=== PATIENT | male | born 1960 | race Caucasian/White ===

== ENCOUNTER 2021-01-09 15:10 | Emergency (ER) | payer OTHER ==
[2021-01-09 16:02] LABS: BILIRUBIN NEGATIVE (NEGATIVE); BLOOD NEGATIVE Ery/uL (NEGATIVE); CLARITY CLEAR (CLEAR); COLOR YELLOW (YELLOW); GLUCOSE (U) NORMAL (NORMAL); LEUKOCYTES NEGATIVE Leu/uL (NEGATIVE); NITRITE NEGATIVE (NEGATIVE); PROTEIN NEGATIVE (NEGATIVE); UROBILINOGEN 0.2 mg/dL (0.2-1.0)
[2021-01-09 16:19] LABS: HCT 33.8 % (42.0-52.0); HGB 10.7 g/dl (13.2-18.0); MCH 30.5 pg (25.0-31.0); MCHC 31.7 g/dL (32.0-36.0); MCV 96.3 fL (78.0-100.0); MPV 9.2 fL (6.0-9.5); RBC 3.51 M/uL (4.70-6.00); RDW 13.6 % (11.5-14.0); WBC 11.1 K/uL (4.0-10.5)
[2021-01-09 16:40] LABS: BUN/CREAT RATIO (CALC) 8.7 RATIO; CREATININE 1.04 mg/dL (0.67-1.17); POTASSIUM 5.2 mmol/L (3.5-5.1)
== END 2021-01-09 19:56 | disposition other institution (70) ==
LOC: FER 15:10
PROVIDERS: Emergency Medicine
DX: R33.9 Retention of urine, unspecified (principal); Z20.822 Contact with and (suspected) exposure to COVID-19
CPT/HCPCS: 36415; 80048; 81003; J2930; J7030; U0002

== ENCOUNTER 2021-01-23 15:17 | Inpatient (IN) | payer OTHER ==
[~2021-01-23] VITALS: Ht 190.5 cm; Wt 94.8 kg
[2021-01-23 15:51] LABS: BASOPHIL 0.2 % (0-2); EOSINOPHIL 0 % (0-5); HCT 21.2 % (42.0-52.0); LYMPHOCYTE 5.1 % (15-48); MCH 29.7 pg (25.0-31.0); MONOCYTE 13.6 % (0-12); MPV 8.8 fL (6.0-9.5); NEUTROPHIL 77.6 % (41-80); NRBC 0; PLT 224 K/uL (150-400); RBC 2.36 M/uL (4.70-6.00); RDW 16.7 % (11.5-14.0)
[2021-01-23 15:54] LABS: MCV 89.8 fL (78.0-100.0)
[2021-01-23 16:24] LABS: PRO-BNP 2627 pg/mL (<125)
[2021-01-23 16:29] LABS: LACTIC ACID 0.9 mmol/L (0.4-1.9)
[2021-01-23 16:38] LABS: ALBUMIN 1.8 g/dL (3.4-5.0); BILIRUBIN - TOTAL 0.4 mg/dL (0.2-1.0); CREATININE 6.62 mg/dL (0.67-1.17); GLOBULIN (CALCULATION) 3.4 g/dL; MAGNESIUM 2.4 mg/dL (1.8-2.4); PHOSPHORUS 6.8 mg/dL (2.6-4.7); POTASSIUM 4.7 mmol/L (3.5-5.1); TOTAL PROTEIN 5.2 g/dL (6.4-8.2)
[2021-01-23 16:51] LABS: CORONAVIRUS 2019 SARS-COV-2 NEGATIVE (NEGATIVE); INFLUENZA A NAA NEGATIVE (NEGATIVE)
[2021-01-23 17:15] LABS: BILIRUBIN 1+ mg/dL (NEGATIVE); BLOOD 2+ Ery/uL (NEGATIVE); CLARITY HAZY (CLEAR); COLOR YELLOW (YELLOW); GLUCOSE (U) NORMAL (NORMAL); LEUKOCYTES 2+ Leu/uL (NEGATIVE); NITRITE NEGATIVE (NEGATIVE); PROTEIN TRACE (LOW) mg/dL (NEGATIVE); SPECIFIC GRAVITY 1.025 (1.001-1.030); UROBILINOGEN 0.2 mg/dL (0.2-1.0); pH 5.5 (5.0-9.0)
[2021-01-23 17:18] LABS: BACTERIA 3+; MUCOUS MODERATE; SQUAMOUS EPITHELIAL CELLS RARE; URINARY WBC 20-50
[2021-01-23 17:19] LABS: IRON % SATURATION 4.8 %SAT (20-50)
[2021-01-23 17:47] LABS: FOLIC ACID (SERUM) 12.5 ng/mL (8.6-58.9)
[2021-01-23 20:08] LABS: POTASSIUM 4.1 mmol/L (3.5-5.1)
[2021-01-23 20:10] LABS: CREATININE 4.97 mg/dL (0.67-1.17)
[2021-01-24] MEDS ORDERED: GABAPENTIN400 MG PO (02:12)
[2021-01-24] MEDS ORDERED: PERCOCET 10-321 EACH PO (02:13)
[2021-01-24] MEDS ORDERED: AMITRIPTYLINE H10 MG PO (02:15)
[2021-01-24 13:42] LABS: BASOPHIL 0.1 % (0-2); EOSINOPHIL 0.3 % (0-5); HCT 26.2 % (42.0-52.0); HGB 8.8 g/dl (13.2-18.0); LYMPHOCYTE 5.6 % (15-48); MCH 30.2 pg (25.0-31.0); MCHC 33.6 g/dL (32.0-36.0); MONOCYTE 8.8 % (0-12); MPV 8.7 fL (6.0-9.5); NEUTROPHIL 84.2 % (41-80); NRBC 0; PLT 224 K/uL (150-400); RBC 2.91 M/uL (4.70-6.00); RDW 16.5 % (11.5-14.0)
[2021-01-24 13:45] LABS: WBC 9.3 K/uL (4.0-10.5)
[2021-01-24 14:15] LABS: CREATININE 1.22 mg/dL (0.67-1.17); POTASSIUM 3.9 mmol/L (3.5-5.1)
[2021-01-25 05:44] LABS: BUN/CREAT RATIO (CALC) 26.8 RATIO; CREATININE 0.82 mg/dL (0.67-1.17); PHOSPHORUS 1.7 mg/dL (2.6-4.7); POTASSIUM 3.9 mmol/L (3.5-5.1)
[2021-01-25 05:52] LABS: BASOPHIL 0.2 % (0-2); EOSINOPHIL 1.4 % (0-5); HCT 25.7 % (42.0-52.0); HGB 8.3 g/dl (13.2-18.0); LYMPHOCYTE 10.3 % (15-48); MCHC 32.3 g/dL (32.0-36.0); MCV 92.8 fL (78.0-100.0); MONOCYTE 8.7 % (0-12); MPV 8.7 fL (6.0-9.5); NEUTROPHIL 77.7 % (41-80); NRBC 0; PLT 242 K/uL (150-400); RBC 2.77 M/uL (4.70-6.00); WBC 8.5 K/uL (4.0-10.5)
[2021-01-26 03:24] LABS: BASOPHIL 0.4 % (0-2); HCT 24.4 % (42.0-52.0); HGB 7.8 g/dl (13.2-18.0); LYMPHOCYTE 18.1 % (15-48); MCH 29.7 pg (25.0-31.0); MCV 92.8 fL (78.0-100.0); MONOCYTE 9.1 % (0-12); MPV 8.7 fL (6.0-9.5); NRBC 0; PLT 194 K/uL (150-400); RBC 2.63 M/uL (4.70-6.00); RDW 16.8 % (11.5-14.0)
[2021-01-26 03:25] LABS: WBC 5.6 K/uL (4.0-10.5)
[2021-01-26 03:29] LABS: ALBUMIN 1.7 g/dL (3.4-5.0); BILIRUBIN - TOTAL 0.3 mg/dL (0.2-1.0); BUN/CREAT RATIO (CALC) 16.4 RATIO; CREATININE 0.73 mg/dL (0.67-1.17); GLOBULIN (CALCULATION) 2.7 g/dL; POTASSIUM 3.9 mmol/L (3.5-5.1); TOTAL PROTEIN 4.4 g/dL (6.4-8.2)
[2021-01-26 14:20] LABS: HGB 7.9 g/dL (13.2-18.0)
[2021-01-27 04:41] LABS: ALBUMIN 1.7 g/dL (3.4-5.0); BILIRUBIN - TOTAL 0.4 mg/dL (0.2-1.0); BUN/CREAT RATIO (CALC) 12.1 RATIO; CREATININE 0.66 mg/dL (0.67-1.17); GLOBULIN (CALCULATION) 3.2 g/dL; POTASSIUM 4.1 mmol/L (3.5-5.1); TOTAL PROTEIN 4.9 g/dL (6.4-8.2)
[2021-01-27 04:49] LABS: BASOPHIL 0.5 % (0-2); EOSINOPHIL 2.3 % (0-5); HCT 25.2 % (42.0-52.0); HGB 8.2 g/dl (13.2-18.0); LYMPHOCYTE 12.7 % (15-48); MCH 30.4 pg (25.0-31.0); MCHC 32.5 g/dL (32.0-36.0); MCV 93.3 fL (78.0-100.0); MONOCYTE 7.7 % (0-12); MPV 8.8 fL (6.0-9.5); NEUTROPHIL 68.4 % (41-80); NRBC 0; PLT 228 K/uL (150-400); RDW 16.2 % (11.5-14.0)
[2021-01-27 04:50] LABS: WBC 9.5 K/uL (4.0-10.5)
[2021-01-28 06:00] LABS: BASOPHIL 0.6 % (0-2); EOSINOPHIL 2.4 % (0-5); HCT 27.7 % (42.0-52.0); HGB 8.9 g/dl (13.2-18.0); LYMPHOCYTE 11.4 % (15-48); MCHC 32.1 g/dL (32.0-36.0); MCV 93.3 fL (78.0-100.0); MONOCYTE 8.6 % (0-12); NEUTROPHIL 67.5 % (41-80); NRBC 0; PLT 269 K/uL (150-400); RBC 2.97 M/uL (4.70-6.00); RDW 16.4 % (11.5-14.0)
[2021-01-28 06:15] LABS: WBC 11.1 K/uL (4.0-10.5)
[2021-01-28 06:23] LABS: BILIRUBIN - TOTAL 0.3 mg/dL (0.2-1.0); BUN/CREAT RATIO (CALC) 7.9 RATIO; CREATININE 0.76 mg/dL (0.67-1.17); GLOBULIN (CALCULATION) 3.4 g/dL; TOTAL PROTEIN 5.4 g/dL (6.4-8.2)
[2021-01-28] MEDS ORDERED: FEOSOL325 MG PO (08:31)
[2021-01-28] MEDS ORDERED: FLORANEX TABLE1 EACH PO (08:31)
[2021-01-28] MEDS ORDERED: CARAFATE1 GM PO (08:31)
[2021-01-28] MEDS ORDERED: PROTONIX 40MG T40 MG PO (08:31)
[2021-01-28] MEDS ORDERED: MACRODANTIN50 MG PO (08:32)
[2021-01-28] MEDS ORDERED: FLOMAX0.4 MG PO (08:37)
[2021-01-29 11:06] LABS: HIV SCREEN 4TH GENERATION WRFX Non Reactive (Non Reactive)
[2021-01-31 16:12] LABS: ADENOVIRUS F 40/41 Not Detected (Not Detected); ASTROVIRUS Not Detected (Not Detected); C DIFFICILE TOXIN A/B Not Detected (Not Detected); CAMPYLOBACTER Not Detected (Not Detected); CRYPTOSPORIDIUM Not Detected (Not Detected); CYCLOSPORA CAYETANENSIS Not Detected (Not Detected); ENTAMOEBA HISTOLYTICA Not Detected (Not Detected); ENTEROAGGREGATIVE E COLI Not Detected (Not Detected); ENTEROPATHOGENIC E COLI Not Detected (Not Detected); ENTEROTOXIGENIC E COLI Not Detected (Not Detected); GIARDIA LAMBLIA Not Detected (Not Detected); NOROVIRUS GI/GII Not Detected (Not Detected); PLESIOMONAS SHIGELLOIDES Not Detected (Not Detected); ROTAVIRUS A Not Detected (Not Detected); SALMONELLA Not Detected (Not Detected); SAPOVIRUS Not Detected (Not Detected); SHIGA-TOXIN-PRODUCING E COLI Not Detected (Not Detected); SHIGELLA/ENTEROINVASIVE E COLI Not Detected (Not Detected); VIBRIO Not Detected (Not Detected); VIBRIO CHOLERAE Not Detected (Not Detected); YERSINIA ENTEROCOLITICA Not Detected (Not Detected)
== END 2021-01-28 10:47 | disposition home or self-care (01) | DRG 871 ==
LOC: FER 15:17 → FICU 22:56 → FMS 22:56
PROVIDERS: Emergency Medicine Emergency Medical Services; Family Medicine; Hospitalist; Student in an Organized Health Care Education/Training Program; ADMIT Allergy & Immunology Allergy
PROC: 30233N1 Transfusion of Nonautologous Red Blood Cells into Peripheral Vein, Percutaneous Approach (ICD-10-PCS; principal; 2021-01-23)
PROC: 0DBP8ZX Excision of Rectum, Via Natural or Artificial Opening Endoscopic, Diagnostic (ICD-10-PCS; 2021-01-27)
PROC: 0DB98ZX Excision of Duodenum, Via Natural or Artificial Opening Endoscopic, Diagnostic (ICD-10-PCS; 2021-01-27 13:45)
PROC: 0DB68ZX Excision of Stomach, Via Natural or Artificial Opening Endoscopic, Diagnostic (ICD-10-PCS; 2021-01-27 13:45)
DX: A41.9 Sepsis, unspecified organism (principal); R65.21 Severe sepsis with septic shock; K25.4 Chronic or unspecified gastric ulcer with hemorrhage; N30.00 Acute cystitis without hematuria; N17.9 Acute kidney failure, unspecified; K51.00 Ulcerative (chronic) pancolitis without complications; N13.8 Other obstructive and reflux uropathy; E87.2 Acidosis; E87.1 Hypo-osmolality and hyponatremia; K51.20 Ulcerative (chronic) proctitis without complications; Z20.822 Contact with and (suspected) exposure to COVID-19; D50.9 Iron deficiency anemia, unspecified; N40.1 Benign prostatic hyperplasia with lower urinary tract symptoms; R33.8 Other retention of urine; G89.29 Other chronic pain; I95.9 Hypotension, unspecified; I10 Essential (primary) hypertension; E86.1 Hypovolemia; K31.7 Polyp of stomach and duodenum; Q85.00 Neurofibromatosis, unspecified; Z79.899 Other long term (current) drug therapy; Z98.890 Other specified postprocedural states; Z88.8 Allergy status to other drugs, medicaments and biological substances
CPT/HCPCS: 36415; 36430; 36600; 70450; 71045; 71250; 72125; 72128; 72131; 78582; 80048; 80053; 81001; 82150; 82550; 82553; 82607; 82746; 82803; 83540; 83550; 83605; 83690; 83735; 83880; 84100; 84145; 84484; 85018; 85025; 85379; 86850; 86900; 86901; 86922; 87040; 87045; 87046; 87076; 87088; 87186; 87205; 87324; 87389; 87449; 87493; 93005; 96365; 96366; 96367; 96375; A9540; C9113; J0692; J1940; J2405; J2543; J2704; J2916; J3370; J7030; J7040; J7050; J7060; J7120; P9016; U0002